=== PATIENT | female | born 1960 | race Caucasian/White ===

== ENCOUNTER 2018-07-27 11:08 | Day surgery (SDC) | payer BC, SELFPAY ==
[2018-07-27] VITALS (7 sets, daily range): BP systolic 117–157; BP diastolic 69–83; PULSE 51–61; RESP 14–16; TEMP 36–36.9; O2SAT 93–98; BMI 42.7
--- NOTE | 2018-07-27 | EMB_PTH ---
PATIENT: JASON ONEIL LOC: [facility] – [place] U#:[id number] AGE/SX: 58/F ROOM: RE07/27/[address]: Dr. Christina High DO : 1960 BED: DIS: 07/27/2018 SPEC #: [id number] RECD: 07/27/18 14:26 STATUS: REE JAMAL #: [id number] JESS: 07/27/18 00:[address]: Christina High DEPT: SURGICAL PATHOLOGY RECD BY: Ever Ambriz ENTERED: 07/27/18 14:26 SP TYPE: ENDOM BX/C DIONTE DR: Dr. Isaiah Adhikari MD Tissues: A - Endometrium, NOS B - Endometrium, NOS Procedures: Surgery Specimen Level IV HEADER OPERATION: Hysteroscopy, dilation and curettage PRE-OP DIAGNOSIS: Postmenopausal bleeding TISSUE SUBMITTED: A - Endometrial curettings, B - Endometrial polyp MICROSCOPIC DIAGNOSIS A. Endometrial curettings: Scant strips of benign endometrial epithelium, consistent with atrophic endometrium. Fragments of myometrium, may represent submucosal leiomyoma. Fragments of benign squamous epithelium. B. Endometrial polyps: Fragments of benign endometrial polyp with focal simple cystic hyperplasia without atypia. SVETA:elvin 07/28/18 MICROSCOPIC DESCRIPTION Slides are reviewed. GROSS DESCRIPTION A - Received in fixative is one container labeled with the patient's name and designated endometrial curettings. The specimen consists of multiple irregular fragments of pink-red soft tissue that in aggregate measure 2.5 x 2 x 0.3 cm. The entire specimen is submitted in one cassette. B - Received in fixative is one container labeled with the patient's name and designated endometrial polyp. The specimen consists of multiple polypoid fragments of pink soft tissue that in aggregate measure 3 x 2 x 0.4 cm. The pieces are bisected. The entire specimen is submitted in one cassette. / SVETA:elvin 07/27/18 TC:5 CPT: 04906 x2
[2018-07-27 11:35] LABS: Internal QC Validated? YES +Cl - CLEAR BKGD; Pregnancy, Urine Negative Negative
[2018-07-27 11:41] LABS: Hemoglobin 13.9 g/dl (12.0-15.0); Mean Corp Hgb Conc 33.1 g/gl (32-36); Mean Corpuscular Hgb 30.3 pg (27.0-32.0); Mean Corpuscular Volume 91.5 fL (81-99); Platelet Count 310 K/mm3 (150-450); RBC Distribution Width CV 13.4 % (11.6-14.6); RBC Distribution Width SD 44.4 fl (35.1-43.9); Red Blood Count 4.59 M/mm3 (4.2-5.4); White Blood Count 5.1 K/mm3 (4.4-11.0)
[2018-07-27 11:45] LABS: Scan Indicated on CBC? Y/N NO
--- NOTE | 2018-07-27 12:29 | PCM.HP.OB ---
- Problem List (1) Postmenopausal bleeding Status: Acute (2) Endometrial thickening on ultrasound Status: Acute History Date of Admission: 07/27/18 History of this : This is a 58 year-old with PMB. EMB in office nondiagnostic. EMS 15.6mm and complex appearing on US. PMB was in July 2017 and never worked up. Medical History: Medical History (Last Updated 07/27/18 @ 12:31 by hCristina High DO) Hypothyroidism E03.9 Obesity E66.9 Vitamin D deficiency E55.9 Surgical History: Surgical History (Last Updated 07/27/18 @ 12:31 by Christina High DO) H/O tubal ligation Z98.51 History of vein stripping Z98.890 Allergies Sulfa (Sulfonamide Antibiotics) Allergy (Verified 07/21/18 13:28) Rash sulfamethoxazole [From Bactrim] Allergy (Verified 07/21/18 13:28) Rash trimethoprim [From Bactrim] Allergy (Verified 07/21/18 13:28) Rash Home Medications: Home Medications Ascorbic Acid [Vitamin C] 500 mg PO DAILY 07/21/18 Cholecalciferol (Vitamin D3) [Vitamin D3] 5,000 unit PO DAILY 07/21/18 Levothyroxine Sodium [Synthroid] 112 mcg PO QHS 07/21/18 Smoking Status: Never smoker Alcohol: None History Past Pregnancies: Past Pregnancies Delivery Date Name GA/Weeks Outcome Route Weight Infant Gender Labor Length Anesthesia Delivery Location Provider FOB Review of Systems Constitutional: Denies: Fever Eyes: Denies: Blurred vision, Vision Change HEENT: Denies: Head Aches Cardiovascular: Denies: Chest Pain Respiratory: Denies: Shortness of Breath Gastrointestinal: Denies: Abdominal Pain Genitourinary: Denies: Dysuria Psychiatric: Denies: Anxiety, Depression Physical Exam Vitals: Vital Signs Temp Pulse Resp BP Pulse Ox 98.4 F 61 16 157/79 H 97 07/27/18 11:37 07/27/18 11:37 07/27/18 11:37 07/27/18 11:37 07/27/18 11:37 General: Alert, No apparent distress HEENT: Atraumatic Cardiovascular: Regular rate Lungs: Clear to auscultation Abdomen: Soft, Non Tender, Non-Distended Extremities:: No edema Neurological: Neuro grossly intact Assessment/Plan All Active Problems Postmenopausal bleeding (Acute) Endometrial thickening on ultrasound (Acute) This is a 58 year-old with PMB, nondiagnostic EMB in the office, and a thickened and complex appearing EMS on US. Presents for scheduled hysteroscopy D&C. Risks, benefits, alternatives were reviewed and the patient is agreeable to the surgery.
--- NOTE | 2018-07-27 13:24 | DCINST_ITS ---
Discharge Diet: No Restrictions Discharge Activity: Return to Normal Activity May resume sexual activity in: 1-2 weeks Weight Bearing Status: Full weight bearing Lifting Restrictions: None Call your doctor if you observe: Fever of 101 or Higher, Inability to urinate, Inability to have a bowel movement, Using more than one pad per hour, Shortness of breath, Dizziness, Chest pain, Increased palpitations (irregular heartbeat), Calf discomfort, Uncontrolled pain Allergies/Adverse Reactions: Allergies Sulfa (Sulfonamide Antibiotics) Allergy (Verified 07/21/18 13:28) Rash sulfamethoxazole [From Bactrim] Allergy (Verified 07/21/18 13:28) Rash trimethoprim [From Bactrim] Allergy (Verified 07/21/18 13:28) Rash Medications to take at Discharge Ascorbic Acid [Vitamin C] 500 mg PO DAILY 07/21/18 Cholecalciferol (Vitamin D3) [Vitamin D3] 5,000 unit PO DAILY 07/21/18 Levothyroxine Sodium [Synthroid] 112 mcg PO QHS 07/21/18 Primary Care Physician: Isaiah Adhikari MD [Primary Care Provider] - Test Results: Test results from this visit will be discussed in further detail at your follow- up appointment, if applicable. Please Follow Up With: Christina High DO When: 1 week
--- NOTE | 2018-07-27 13:24 | PCM.OPRPT ---
Problem List (1) Postmenopausal bleeding Status: Acute (2) Endometrial thickening on ultrasound Status: Acute Report of Operation Date of Procedure: 07/27/18 Pre-Operative Diagnosis: PMB, thickened EMS on ultrasound Post-Operative Diagnosis: As above, endometrial polyp Surgery/Procedure Performed:: Hysteroscopy, polypectomy, D&C Description of Surgical Findings:: Endometrial polyp noted from the right lateral uterine wall. Otherwise a normal uterine cavity and bilateral tubal ostia visualized. Endometrium atrophic and thin appearing. Slight descent of uterus and cervix Type of Anesthesia:: MAC Specimen's removed: Endometrial polyp, endometrial curettings Estimated Blood Loss (mL): < 10 cc Fluids Replaced: 350 cc fluid defecit Description of Procedure: Patient prepped and draped in usual sterile fashion in dorsal lithotomy position using yellow fin stirrups. MAC anesthesia was found to be adequate. Weighted speculum was placed in the vagina and anterior lip of the cervix was grasped with a single tooth tenaculum. Slight descent noted. The cervix was serially dilated to accommodate the hysteroscope. The hysteroscope was advanced into the uterus and the cavity was distended with normal saline. An endometrial polyp was noted. The hysteroscope was removed. Polyp forceps were used to remove most of the polyp. The hysteroscopy was then advanced into the uterus, and some polyp was still remaining. Therefore the Symphion hysteroscope was then advanced into the uterus. The Symphion device was then used to remove the remaining polyp. The uterine cavity was otherwise normal appearing with a thin appearing endometrium. The Symphion hysteroscope was then removed. A sharp curettage was performed for a minimal amount of endometrial tissue. Specimens were sent to pathology to review. All instruments were removed from the vagina and there was no bleeding noted. Patient tolerated the procedure well and was taken to the recovery room in stable condition. - Complications None - Admit VTE Documentation VTE Present on Admission: No VTE Mechan Device Prophylaxis: SCD's
== END 2018-07-27 15:31 | disposition home or self-care (01) ==
LOC: SDC 11:16 → AC 11:18
PROVIDERS: Family Provider Family Medicine; PCP Family Medicine; Referring Provider Obstetrics & Gynecology; Visit Provider Obstetrics & Gynecology
PROC: 0UDB8ZZ Extraction of Endometrium, Via Natural or Artificial Opening Endoscopic (ICD-10-PCS; CPT 58558; principal; 2018-07-27 12:15)
DX: N84.0 Polyp of corpus uteri (principal); N95.0 Postmenopausal bleeding; R93.89 Abnormal findings on diagnostic imaging of other specified body structures; Z88.2 Allergy status to sulfonamides; Z88.1 Allergy status to other antibiotic agents; Z98.51 Tubal ligation status
CPT/HCPCS: 58558; 36415; 81025; 85027; 86850; 86900; 88305; J7120; J2405